=== PATIENT | female | born 2000 | race Caucasian/White ===

== ENCOUNTER → 2019-04-28 14:52 | Outpatient (CLI) | payer OTHER, SELFPAY ==
--- NOTE | 2019-04-28 14:54 | DI.RAD.S_ITS ---
PROCEDURE: XR RIBS BI MIN 4V W CXR1V INDICATIONS: Continued cough, left and right rib pain with palpation. TECHNIQUE: 2 views of the left ribs and 2 views of the right ribs were obtained. Single frontal view of the chest was also obtained. COMPARISON: None. FINDINGS: Motion artifact on multiple images resulted in difficulty evaluating the ribs for subtle fractures. However, no displaced right or left rib fracture is appreciated. The lungs are well aerated without focal consolidation, effusion, or pneumothorax. No overt heart failure is identified. The cardiomediastinal silhouette is normal in size. The overlying bony and soft tissues of the chest are unremarkable. Included portions of the upper abdomen are also unremarkable. IMPRESSION: No displaced rib fractures. Dictated by: Nico Moreno M.D. on 04/28/2019 at 14:20 Approved by: Nico Moreno M.D. on 04/28/2019 at 14:24
== END ==
PROVIDERS: Visit Provider Nurse Practitioner
DX: R05 Cough (principal); R07.81 Pleurodynia
CPT/HCPCS: 71111

== ENCOUNTER → 2019-05-25 15:21 | Outpatient (CLI) | payer OTHER, SELFPAY ==
[2019-05-25 21:18] LABS: Urine N gonorrhoeae NOT DETECTED
[2019-05-25 21:29] LABS: Urine Chlamydia NOT DETECTED
== END ==
DX: Z11.3 Encounter for screening for infections with a predominantly sexual mode of transmission (principal)
CPT/HCPCS: 87491; 87591

== ENCOUNTER → 2020-04-19 13:53 | Outpatient (CLI) | payer OTHER, SELFPAY ==
[2020-04-19 14:22] LABS: COVID19 -Nasal RAPID Negative (Negative)
== END ==
PROVIDERS: Visit Provider Physician Assistant
DX: Z20.822 Contact with and (suspected) exposure to COVID-19 (principal)
CPT/HCPCS: 87635

== ENCOUNTER → 2020-10-10 09:17 | Outpatient (CLI) | payer OTHER, SELFPAY ==
[2020-10-10 10:22] LABS: Add Manual Diff / Slide Review NO; Basophils Absolute Auto 100 /uL (0-100); Basophils Percent Auto 1.1 % (0-2); Eosinophils Absolute Auto 200 /uL (0-450); Eosinophils Percent Auto 3.3 % (2-4); Hematocrit 40.8 % (36-46); Hemoglobin 13.6 g/dL (12.0-16.0); Lymphocytes Absolute Auto 1600 /uL (1100-4500); Lymphocytes Percent Auto 26.4 % (25-40); Mean Corpuscular HGB Conc 33.5 % (30-36); Mean Corpuscular Hemoglobin 28.8 PG (26-34); Monocytes Absolute Auto 400 /uL (0-900); Neutrophils Absolute Auto 3800 /uL (1500-7000); Neutrophils Percent Auto 62.2 % (50-75); Platelet Count 268 X10^3/uL (150-400); Red Blood Cell Count 4.74 X10^6/uL (4.0-5.2); Red Cell Distribution Width 13.3 % (11.6-14.8); White Blood Cell Count 6.2 X10^3/uL (4.5-11.0)
[2020-10-10 10:52] LABS: Erythrocyte Sedimentation Rate 7 MM/HR (0-20)
[2020-10-10 11:00] LABS: Alanine Aminotransferase 24 IU/L (<35); Albumin 4.6 g/dL (3.5-5.0); Albumin Globulin Ratio 1.4 (1.0-2.8); Alkaline Phosphatase 61 U/L (38-126); Aspartate Aminotransferase 25 IU/L (14-36); BUN Creatinine Ratio 12.7 (6-22); Bilirubin Total 0.3 mg/dL (0.2-1.3); Blood Urea Nitrogen 8 mg/dL (7-17); C-Reactive Protein Quant 1.2 mg/dL (<1.0); Calcium 9.9 mg/dL (8.4-10.2); Carbon Dioxide 23 mmol/L (22-32); Chloride 106 mmol/L (98-107); Estimated Glomerular Filt Rate > 60.0 mL/min (>60); Globulin 3.3 g/dL (1.7-4.1); Glucose 88 mg/dL (70-100); HEMOLYSIS < 15 (0-50); Sodium 141 mmol/L (137-145); Total Protein 7.9 g/dL (6.3-8.2)
[2020-10-10 12:02] LABS: TSH w/ Reflex to FT4 1.02 uIU/mL (0.47-4.68)
[2020-10-11 18:59] LABS: Deamidated Gliadin Ab IgA 2 units (0-19); Deamidated Gliadin Ab IgG 1 units (0-19); Immunoglobulin A,Qn 87 mg/dL (87-352); t-Transglutaminase IgA <2 U/mL (0-3)
== END ==
PROVIDERS: PCP Family Medicine; Referring Provider Family Medicine; Visit Provider Family Medicine
DX: K92.1 Melena (principal); R10.9 Unspecified abdominal pain; R19.5 Other fecal abnormalities
CPT/HCPCS: 36415; 80053; 82784; 83516; 84443; 85025; 85651; 86140